=== PATIENT | male | born 1930 | race Caucasian/White ===

== ENCOUNTER 2016-11-09 14:20 | Emergency (ER) | payer MEDICARE, BC ==
[~2016-11-09] VITALS: Ht 180.3 cm; Wt 93.2 kg
[~2016-11-09 14:20] MED LIST: LEVAQUIN 750MG750 MG PO; LORTAB 7.5/5001 TAB PO; NO HOME MEDICATIONS
[2016-11-09 14:24] VITALS: BP 138/70; TEMP 98
[2016-11-09] MEDS ORDERED: RT SPIRIVA18 MCG IH (15:53)
[2016-11-09] MEDS ORDERED: LASIX 40MG TABL40 MG PO (15:53)
[2016-11-09] MEDS ORDERED: RT ADVAIR 228 DISKUS IH (15:53)
[2016-11-09 16:33] LABS: BASO % 0.4 % (0.0-2.0); EOS # 0.2 (0.0-0.7); EOS % 2.4 % (0-4.0); GRAN # 7.2 (1.4-6.5); GRAN % 70.7 % (42.2-75.2); HEMATOCRIT 45.6 % (42.0-52.0); LYMPH # 1.5 (1.2-3.4); LYMPH % 14.7 % (20.0-51.0); MEAN CELL VOLUME 93 fl (80.0-100.0); MEAN CORPUSCULAR HEMOGLOBIN 31 pg (27.0-31.0); MEAN CORPUSCULAR HGB CONC 33 g/dl (33.0-37.0); MONO # 1.2 (0.1-0.6); MONO % 11.5 % (1.7-9.3); PLATELET COUNT 239 K/mm3 (130-400); REDCELL DISTRIBUTION WIDTH-CV 15.4 % (11.5-14.5); WHITE BLOOD COUNT 10.2 K/mm3 (4.8-10.8)
[2016-11-09 16:47] LABS: ADJUSTED CALCIUM 9.2 mg/dL (8.4-10.2); ALBUMIN 3.6 gm/dL (3.5-5.0); BILIRUBIN,TOTAL 0.6 mg/dL (0.0-1.0); CALCIUM 8.9 mg/dL (8.4-10.2); CREATININE, serum 0.71 mg/dL (0.66-1.25); TOTAL PROTEIN 7.3 gm/dL (6.4-8.2)
[2016-11-09] MEDS ORDERED: K-DUR20 MEQ PO (17:36)
[2016-11-09 17:42] VITALS: PULSE 76
== END 2016-11-09 17:49 | disposition home or self-care (01) ==
LOC: COL.ER 14:20
PROVIDERS: Emergency Medicine
DX: R60.0 Localized edema (principal); I10 Essential (primary) hypertension; J44.9 Chronic obstructive pulmonary disease, unspecified

== ENCOUNTER 2016-12-11 15:34 | Inpatient (IN) | payer MEDICARE, BC ==
[~2016-12-11] VITALS: Ht 177.8 cm; Wt 93.0 kg
[~2016-12-11 15:34] MED LIST changes: +K-DUR20 MEQ PO; +LASIX 40MG TABL40 MG PO; +RT ADVAIR 228 DISKUS IH; +RT SPIRIVA18 MCG IH
[2016-12-11 16:37] LABS: BASO # 0.1 (0.0-0.2); BASO % 0.7 % (0.0-2.0); EOS # 0.3 (0.0-0.7); EOS % 2.3 % (0-4.0); HEMATOCRIT 46.4 % (42.0-52.0); HEMOGLOBIN 15.8 g/dl (13.5-18.0); LYMPH # 1.4 (1.2-3.4); LYMPH % 12.7 % (20.0-51.0); MEAN CELL VOLUME 91 fl (80.0-100.0); MEAN CORPUSCULAR HEMOGLOBIN 31 pg (27.0-31.0); MEAN CORPUSCULAR HGB CONC 34 g/dl (33.0-37.0); MONO # 1.3 (0.1-0.6); MONO % 11.9 % (1.7-9.3); PLATELET COUNT 222 K/mm3 (130-400); RED BLOOD COUNT 5.09 M/mm3 (4.20-5.60); REDCELL DISTRIBUTION WIDTH-CV 15.6 % (11.5-14.5); WHITE BLOOD COUNT 11.1 K/mm3 (4.8-10.8)
[2016-12-11 16:38] LABS: PROTHROMBIN TIME 11.5 SECONDS (9.7-12.8)
[2016-12-11 16:41] LABS: PARTIAL THROMBOPLASTIN TIME 29.9 SECONDS (26.0-37.0)
[2016-12-11 16:46] LABS: ALLEN TEST NO; ARTERIAL BLD GAS TCO2 CT 38.4; ARTERIAL BLOOD GAS BASE EXCESS 9.6 (-2-2); ARTERIAL BLOOD GAS HCO3 36.6 meq/L (22-26); ARTERIAL BLOOD GAS pH 7.41 (7.35-7.45); ATS? YES
[2016-12-11 16:59] LABS: B-TYPE NATRIURETIC PEPTIDE 114 pg/mL (0-450)
[2016-12-11 17:03] LABS: ADJUSTED CALCIUM 8.8 mg/dL (8.4-10.2); ALANINE AMINOTRANSFERASE 17 U/L (21-72); ALBUMIN 3.7 gm/dL (3.5-5.0); ALKALINE PHOSPHATASE 55 U/L (50-136); ANION GAP 12 mmol/L (7-16); BILIRUBIN,TOTAL 0.7 mg/dL (0.0-1.0); BLOOD UREA NITROGEN 26 mg/dL (9-20); CALCIUM 8.6 mg/dL (8.4-10.2); CARBON DIOXIDE 35 mmol/L (22-30); CHLORIDE 93 mmol/L (98-107); CREATININE, serum 0.71 mg/dL (0.66-1.25); GLUCOSE 107 mg/dL (74-106); POTASSIUM 3.3 mmol/L (3.4-5.0); SODIUM 140 mmol/L (137-145); TOTAL PROTEIN 7.6 gm/dL (6.4-8.2)
[2016-12-11 17:08] LABS: TROPONIN-I < 0.012 ng/mL (0.000-0.034)
[2016-12-11 20:56] VITALS: BP 114/82; PULSE 70; TEMP 97.6
[2016-12-12] VITALS (7 sets, daily range): BP systolic 98–127; BP diastolic 52–78; PULSE 54–99; TEMP 97.4–98.5
[2016-12-12 08:21] LABS: CALCIUM 8.3 mg/dL (8.4-10.2); CREATININE, serum 0.67 mg/dL (0.66-1.25)
[2016-12-12 11:49] LABS: PH 7 (5-8); SQUAMOUS EPITHELIAL 0-2 /hpf; URINE APPEARANCE Clear; URINE BACTERIA None Seen /hpf; URINE BILIRUBIN Negative (NEGATIVE); URINE BLOOD Negative (NEGATIVE); URINE COLOR Yellow; URINE GLUCOSE Negative (NEGATIVE); URINE KETONE Negative (NEGATIVE); URINE RBC 0-2 /hpf; URINE UROBILINOGEN Negative (NEGATIVE); URINE WBC 0-2 /hpf
[2016-12-13 03:32] VITALS: BP 136/58; PULSE 72; TEMP 97.5
[2016-12-13 08:45] VITALS: BP 110/56; PULSE 94; TEMP 98
[2016-12-13 11:31] LABS: CALCIUM 8.4 mg/dL (8.4-10.2); CREATININE, serum 0.63 mg/dL (0.66-1.25); POTASSIUM 3.7 mmol/L (3.4-5.0)
[2016-12-13 11:38] LABS: HEMATOCRIT 47.9 % (42.0-52.0); HEMOGLOBIN 15.7 g/dl (13.5-18.0); MEAN CELL VOLUME 93 fl (80.0-100.0); MEAN CORPUSCULAR HEMOGLOBIN 31 pg (27.0-31.0); MEAN CORPUSCULAR HGB CONC 33 g/dl (33.0-37.0); MEAN PLATELET VOLUME 10.8 fl (7.4-10.4); PLATELET COUNT 230 K/mm3 (130-400); RED BLOOD COUNT 5.15 M/mm3 (4.20-5.60); REDCELL DISTRIBUTION WIDTH-CV 15.4 % (11.5-14.5); WHITE BLOOD COUNT 13.8 K/mm3 (4.8-10.8)
[2016-12-13 11:43] LABS: ADD PATHOLOGY DIFF REVIEW NO
[2016-12-13 11:55] VITALS: BP 110/56; PULSE 94; TEMP 98
[2016-12-13 12:45] LABS: ANISOCYTOSIS 1+; BAND 5 % (0-10); NEUTROPHILS 91 % (42.0-75.2); PLATELET ESTIMATE NORMAL (NORMAL); TOTAL CELLS COUNTED 100
[2016-12-13 16:14] VITALS: BP 108/58; PULSE 56; TEMP 97.7
[2016-12-13 20:02] VITALS: BP 109/56; PULSE 64; TEMP 97.3
[2016-12-14 00:09] VITALS: BP 122/74; PULSE 74; TEMP 97.8
[2016-12-14 07:46] VITALS: BP 104/77; PULSE 65; TEMP 98.4
[2016-12-14 08:06] LABS: CALCIUM 8.8 mg/dL (8.4-10.2); CREATININE, serum 0.58 mg/dL (0.66-1.25); POTASSIUM 4.4 mmol/L (3.4-5.0)
[2016-12-14] MEDS ORDERED: PREDNISONE20 MG PO (12:12)
[2016-12-14] MEDS ORDERED: ZITHROMAX 250M250 MG PO (12:13)
[2016-12-14] MEDS ORDERED: OMNICEF 300MG300 MG PO (12:14)
[2016-12-14] MEDS ORDERED: IPRATROPIUM BROM3 M1 IH (12:15)
[2016-12-14] MEDS ORDERED: PROTONIX20 MG PO (12:16)
[2016-12-14 12:48] LABS: ARTERIAL BLD GAS O2 SATURATION 84.1 % (92-100); ARTERIAL BLD GAS TCO2 CT 32.4; ARTERIAL BLOOD GAS BASE EXCESS 4.5 (-2-2); ARTERIAL BLOOD GAS HCO3 30.9 meq/L (22-26); ARTERIAL BLOOD GAS PHT 7.39 C (7.35-7.45); ARTERIAL BLOOD GAS PO2 49.3 mmHg (80-100); ARTERIAL BLOOD GAS PO2T 49.3 (80-100); ARTERIAL BLOOD GAS pH 7.39 (7.35-7.45); ATS? YES
[2016-12-14 12:52] VITALS: BP 122/56; PULSE 59; TEMP 98.7
[2016-12-14 14:45] VITALS: BP 122/56; PULSE 59; TEMP 98.7
== END 2016-12-14 16:00 | DRG 189 ==
LOC: COL.ER 15:34 → MEDICAL 18:42
PROVIDERS: Emergency Medicine; Internal Medicine Cardiovascular Disease; Internal Medicine Pulmonary Disease; Physician Assistant
DX: J96.02 Acute respiratory failure with hypercapnia (principal); J69.0 Pneumonitis due to inhalation of food and vomit; J44.1 Chronic obstructive pulmonary disease with (acute) exacerbation; J96.01 Acute respiratory failure with hypoxia; E87.6 Hypokalemia; I71.4 Abdominal aortic aneurysm, without rupture; R53.81 Other malaise; F17.210 Nicotine dependence, cigarettes, uncomplicated
CPT/HCPCS: 99223-AI; 99232-AI; 99233-AI; 99239; A4315; J0456; J0696; J1650; J1940; J2930; J3480; J7050; J7060; Q9967

== ENCOUNTER 2017-01-06 12:23 | Emergency (ER) | payer MEDICARE, BC ==
[~2017-01-06] VITALS: Ht 180.3 cm; Wt 93.2 kg
[~2017-01-06 12:23] MED LIST changes: +IPRATROPIUM BROM3 M1 IH; +OMNICEF 300MG300 MG PO; +PREDNISONE20 MG PO; +PROTONIX20 MG PO; +ZITHROMAX 250M250 MG PO
[2017-01-06 12:26] VITALS: BP 100/61; TEMP 98.6
[2017-01-06 13:00] LABS: BASO % 0.2 % (0.0-2.0); EOS % 0.3 % (0-4.0); GRAN # 11.1 (1.4-6.5); GRAN % 89.5 % (42.2-75.2); HEMATOCRIT 44.4 % (42.0-52.0); HEMOGLOBIN 14.7 g/dl (13.5-18.0); LYMPH # 0.6 (1.2-3.4); LYMPH % 4.7 % (20.0-51.0); MEAN CELL VOLUME 91 fl (80.0-100.0); MEAN CORPUSCULAR HEMOGLOBIN 30 pg (27.0-31.0); MEAN CORPUSCULAR HGB CONC 33 g/dl (33.0-37.0); MEAN PLATELET VOLUME 10.3 fl (7.4-10.4); MONO # 0.6 (0.1-0.6); MONO % 4.8 % (1.7-9.3); PLATELET COUNT 241 K/mm3 (130-400); RED BLOOD COUNT 4.89 M/mm3 (4.20-5.60); REDCELL DISTRIBUTION WIDTH-CV 15.6 % (11.5-14.5); WHITE BLOOD COUNT 12.4 K/mm3 (4.8-10.8)
[2017-01-06 13:03] LABS: ADJUSTED CALCIUM 9.1 mg/dL (8.4-10.2); ALBUMIN 3.2 gm/dL (3.5-5.0); BILIRUBIN,TOTAL 0.6 mg/dL (0.0-1.0); CALCIUM 8.5 mg/dL (8.4-10.2); CREATININE, serum 0.51 mg/dL (0.66-1.25); POTASSIUM 4.3 mmol/L (3.4-5.0); TOTAL PROTEIN 6.7 gm/dL (6.4-8.2)
[2017-01-06 14:51] LABS: PH 6 (5-8); SQUAMOUS EPITHELIAL None Seen /hpf; URINE APPEARANCE Clear; URINE BACTERIA None Seen /hpf; URINE BILIRUBIN Negative (NEGATIVE); URINE BLOOD Negative (NEGATIVE); URINE COLOR Yellow; URINE GLUCOSE Negative (NEGATIVE); URINE KETONE Negative (NEGATIVE); URINE RBC 0-2 /hpf; URINE UROBILINOGEN Negative (NEGATIVE); URINE WBC 0-2 /hpf
[2017-01-06 16:37] VITALS: PULSE 72
== END 2017-01-06 16:37 | disposition home or self-care (01) ==
LOC: COL.ER 12:23
PROVIDERS: Emergency Medicine
DX: S09.90XA Unspecified injury of head, initial encounter (principal); R41.0 Disorientation, unspecified; I48.91 Unspecified atrial fibrillation; Z98.890 Other specified postprocedural states; W01.10XA Fall on same level from slipping, tripping and stumbling with subsequent striking against unspecified object, initial encounter
CPT/HCPCS: A4315; J7040

== ENCOUNTER → 2017-01-09 | Outpatient (CLI) | payer MEDICARE, BC ==
[2017-01-09 14:49] LABS: ARTERIAL BLD GAS O2 SATURATION 91.6 % (92-100); ARTERIAL BLOOD GAS BASE EXCESS 2.5 (-2-2); ARTERIAL BLOOD GAS HCO3 27.5 meq/L (22-26); ARTERIAL BLOOD GAS PO2 61.6 mmHg (80-100); ARTERIAL BLOOD GAS pH 7.42 (7.35-7.45)
[2017-01-09 14:50] LABS: ALLEN TEST YES; ALLENS TEST RESULT PASS; ATS? YES
== END ==
LOC: COL.PUL 14:01
PROVIDERS: Physician Assistant
DX: J96.21 Acute and chronic respiratory failure with hypoxia (principal)

== ENCOUNTER → 2017-01-10 | Outpatient (CLI) | payer MEDICARE, BC | LOC: COL.LAB 17:10 → COL.VAS 17:10 | DX: J81.1 Chronic pulmonary edema (principal) ==

== ENCOUNTER → 2017-01-30 | Outpatient (REF) ==
[2017-01-30 13:41] LABS: PH 6 (5-8); SQUAMOUS EPITHELIAL 0-2 /hpf; URINE APPEARANCE Turbid; URINE BACTERIA None Seen /hpf; URINE BILIRUBIN Negative (NEGATIVE); URINE BLOOD 1+ (NEGATIVE); URINE COLOR Yellow; URINE GLUCOSE Negative (NEGATIVE); URINE KETONE Negative (NEGATIVE); URINE UROBILINOGEN Negative (NEGATIVE); URINE WBC >50 /hpf
== END ==
LOC: ZCOL.LAB 13:22
PROVIDERS: Family Medicine
DX: Z01.89 Encounter for other specified special examinations (principal)